=== PATIENT | female | born 1975 | race Hispanic/Latino ===

== ENCOUNTER 2017-12-18 13:35 | Emergency (ER) | payer OTHER ==
[2017-12-18] MEDS ORDERED: ACETAMINOPHEN-CODEINE 300/30MG TAB ONE (14:56)
== END 2017-12-18 15:12 | disposition home or self-care (01) ==
LOC: EDH 13:35
DX: S52.002A Unspecified fracture of upper end of left ulna, initial encounter for closed fracture (principal); Z72.0 Tobacco use; W18.39XA Other fall on same level, initial encounter; Y93.01 Activity, walking, marching and hiking; Y92.098 Other place in other non-institutional residence as the place of occurrence of the external cause; Y99.8 Other external cause status
CPT/HCPCS: 29125; 73090